=== PATIENT | female | born 1955 ===

== ENCOUNTER 2022-04-09 11:00 | Inpatient (IN) | payer OTHER ==
[~2022-04-09] VITALS: Ht 154.9 cm; Wt 95.3 kg
[2022-04-09] MEDS ORDERED: AMBIEN5 MG PO (12:54)
[2022-04-09] MEDS ORDERED: SIMVASTATIN10 MG PO (12:55)
== END 2022-04-12 18:12 | disposition home or self-care (01) | DRG 743 ==
LOC: O/R 04-11 07:39 → OB/GYN 04-11 11:00
PROVIDERS: ADMIT Obstetrics & Gynecology Gynecologic Oncology; ATTEND Obstetrics & Gynecology Gynecologic Oncology
PROC: 0UT74ZZ Resection of Bilateral Fallopian Tubes, Percutaneous Endoscopic Approach (ICD-10-PCS; 2022-04-11)
PROC: 0UT24ZZ Resection of Bilateral Ovaries, Percutaneous Endoscopic Approach (ICD-10-PCS; 2022-04-11)
PROC: 07BC4ZZ Excision of Pelvis Lymphatic, Percutaneous Endoscopic Approach (ICD-10-PCS; 2022-04-11)
PROC: 0UT94ZZ Resection of Uterus, Percutaneous Endoscopic Approach (ICD-10-PCS; principal; 2022-04-11 19:05)
DX: D27.0 Benign neoplasm of right ovary (principal); Z20.822 Contact with and (suspected) exposure to COVID-19; N72 Inflammatory disease of cervix uteri